=== PATIENT | female | born 1930 | race Caucasian/White ===

== ENCOUNTER 2016-11-10 12:54 | Inpatient (IN) | payer OTHER, BC ==
--- NOTE | ~2016-11-10 | HP ---
History And Physical [id number] [place]. [address] NAME: NAVARRO LI : 32 STATUS : ADM IN PAT#: [id number] AGE: 85 ADM/REG DATE : 11/10/16 MR#: [id number] REPORT SERV DATE: 11/10/16 DICTATED BY: HELENA RENEE DATE: 11/10/16 REPORT STATUS : Draft TRANSCRIBED BY: MODL DATE: 11/10/16 DATE OF ADMISSION: 11/10/2016 HISTORY OF PRESENT ILLNESS: Ms. Li is an 85-year-old female, who was diagnosed with IIIA ovarian cancer in 2011. At that time, she received Taxol and carboplatin. The patient presented to the office in September of this year with complaints of decreased appetite and vaginal bleeding. She was found at that time to have recurrence at her vaginal apex, about 4 cm mass. This area was biopsied and shown to be a recurrence of her ovarian cancer. A CT scan was performed at that time showing a large pelvic mass as well as positive lymph nodes to the iliac bifurcation, aortic bifurcation, and intra-aortocaval retroperitoneum. Since then, the patient has received 1 cycle of Taxol, her last dose being on 10/29. The patient presented to the office today with complaints of severe shortness of breath, fatigue, and decreased appetite with a 10-pound weight loss. Denies any fever or chills. States she does have a nonproductive cough. She is having daily bowel movements and denies any nausea or vomiting. PAST MEDICAL HISTORY: Arthritis, hypertension, and above-mentioned ovarian cancer. PAST SURGICAL HISTORY: MATT BSO in 2000 and she had appendectomy as a teenager. SOCIAL HISTORY: She is . Denies any alcohol, tobacco, or illicit drug use. REVIEW OF SYSTEMS: As indicated in the HPI. PHYSICAL EXAMINATION: GENERAL: She is alert and oriented x3. Appears weak and pale, in no acute distress. LUNGS: Clear to auscultation bilaterally. Respirations are slightly labored. HEART: Regular rate and rhythm. ABDOMEN: Soft and nontender. EXTREMITIES: Pulses +2 and no swelling noted. ASSESSMENT/PLAN: This is an 85-year-old female with recurrent ovarian cancer, is receiving single agent Taxol, who now is found to have shortness of breath. She is also found to have anemia and decreased appetite that has resulted in a 10-pound weight loss. We will admit the patient and check a CTA of chest to rule out PE. The patient's O2 saturation in the office was found to be 90%. We will also place on 2 L of O2 via nasal cannula in contrary to keep O2 saturation above 93%. We will transfuse the patient with 2 units of packed red blood cells. Further recommendations to follow after the above tests are completed. RADHA/MAT History And Physical [address] [address] NAME: NAVARRO LI : 32 STATUS : ADM IN PAT#: [id number] AGE: 85 ADM/REG DATE : 11/10/16 MR#: [id number] REPORT SERV DATE: 11/10/16 DICTATED BY: HELENA RENEE DATE: 11/10/16 REPORT STATUS : Draft TRANSCRIBED BY: MAT DATE: 11/10/16 Helena Renee NP / [id number] CC: Milo Abdi M.D.
[~2016-11-10 12:54] MED LIST: CARDCD240 PO; CARDU2 PO; COREG25 PO; COZAAR100 MG PO; PAX20 PO; ULTRAM50 PO; ZOCOR20 PO
[2016-11-10 15:09] LABS: HEMOGLOBIN 9.1 g/dL (12.0-16.0); MEAN CORPUSCULAR HEMOGLOB 29.5 pg (26.0-34.0); MEAN PLATELET VOLUME 10.3 fL (9.2-13.0); PLATELET COUNT 222 10/3/uL (150-400); RBC DISTRIBUTION WIDTH 14.6 % (12.0-16.0); RED CELL COUNT 3.08 10/6/uL (4.0-5.6)
[2016-11-10 15:10] LABS: HEMATOCRIT 26.1 % (36.0-48.0); MEAN CORPUS HGB CONC 34.9 g/dL (32.0-36.0); MEAN CORPUSCULAR VOLUME 84.7 fL (80-100); WHITE BLOOD CELLS 32.7 10/3/uL (4.5-10.5)
[2016-11-10 15:12] LABS: MANUAL DIFF YES %
[2016-11-10] MEDS ORDERED: EXELON9.5T TOP (15:13)
[2016-11-10] MEDS ORDERED: COZ50 PO (15:14)
[2016-11-10] MEDS ORDERED: CARD60 PO (15:14)
[2016-11-10] MEDS ORDERED: ULTRAM50 PO (15:14)
[2016-11-10] MEDS ORDERED: TOPXL100 PO (15:15)
[2016-11-10] MEDS ORDERED: CARDU2 PO (15:15)
[2016-11-10] MEDS ORDERED: PAX20 PO (15:16)
[2016-11-10] MEDS ORDERED: VITAMIN D2000 UNIT PO (15:16)
[2016-11-10] MEDS ORDERED: FOLIC PO (15:16)
[2016-11-10 15:17] LABS: CALCIUM, SERUM 8.7 MG/DL (8.5-10.4); CHLORIDE, SERUM 104 MMOL/L (96-112); CO2 (CARBON DIOXIDE) 17 MMOL/L (24-34); CREATININE 1.35 MG/DL (0.55-1.02); GFR AFRICAN AMERICAN 42 ML/MIN (>=60); GFR NON AFRICAN AMERICAN 36 ML/MIN (>=60); GLUCOSE, SERUM 93 MG/DL (60-99); POTASSIUM, SERUM 3.4 MMOL/L (3.5-5.3); SODIUM, SERUM 137 MMOL/L (135-148)
[2016-11-10] MEDS ORDERED: B121000P IM (15:17)
[2016-11-10] MEDS ORDERED: ERYTHROMYCIN O3.5 G1 OPH (15:17)
[2016-11-10 15:18] LABS: BUN (BLOOD UREA NITROGEN) 24 MG/DL (6-23)
[2016-11-10] MEDS ORDERED: NEULASTA SC (15:19)
[2016-11-10] MEDS ORDERED: CHEMOTHERAPY IV (15:19)
[2016-11-10 15:50] LABS: BAND NEUTROPHILS 61 %; IMMATURE GRANS ABSOLUTE (CALC) 1.31 10/3/uL (0.0-0.11); LYMPHOCYTES 3 %; LYMPHOCYTES ABSOLUTE (CALC) 0.98 10/3/uL (0.67-4.30); METAMYELOCYTES 3 %; MONOCYTES 2 %; MONOCYTES ABSOLUTE (CALC) 0.65 10/3/uL (0.21-1.20); MYELOCYTES 1 %; NEUTROPHILS ABSOLUTE (CALC) 29.76 10/3/uL (2.02-8.40); SEGMENTED NEUTROPHIL (0) 30 %; TOTAL NUCLEATED CELLS 100
[2016-11-10 15:51] LABS: PLATELET ESTIMATE ADQ (ADEQUATE); RBC MORPHOLOGY NORM (NORMAL); TOXIC GRANULATION 2+
[2016-11-11 04:23] LABS: MEAN CORPUS HGB CONC 34.7 g/dL (32.0-36.0); MEAN CORPUSCULAR HEMOGLOB 29.7 pg (26.0-34.0); MEAN CORPUSCULAR VOLUME 85.7 fL (80-100); MEAN PLATELET VOLUME 9.8 fL (9.2-13.0); NUCLEATED RED BLOOD CELLS 0.1 /100WBC (0-0); PLATELET COUNT 198 10/3/uL (150-400); RBC DISTRIBUTION WIDTH 14.5 % (12.0-16.0)
[2016-11-11 04:25] LABS: HEMATOCRIT 32.3 % (36.0-48.0); HEMOGLOBIN 11.2 g/dL (12.0-16.0); MANUAL DIFF YES %; RED CELL COUNT 3.77 10/6/uL (4.0-5.6)
[2016-11-11 04:35] LABS: BUN (BLOOD UREA NITROGEN) 21 MG/DL (6-23); CALCIUM, SERUM 8.2 MG/DL (8.5-10.4); CHLORIDE, SERUM 110 MMOL/L (96-112); CO2 (CARBON DIOXIDE) 19 MMOL/L (24-34); CREATININE 1.37 MG/DL (0.55-1.02); GFR AFRICAN AMERICAN 41 ML/MIN (>=60); GFR NON AFRICAN AMERICAN 36 ML/MIN (>=60); GLUCOSE, SERUM 93 MG/DL (60-99); POTASSIUM, SERUM 3.7 MMOL/L (3.5-5.3); SGOT(AST) 10 U/L (5-40); SGPT(ALT) 7 U/L (5-65); SODIUM, SERUM 139 MMOL/L (135-148); TOTAL BILIRUBIN 0.6 MG/DL (0-1.2); TOTAL PROTEIN 5.1 G/DL (6.0-8.5)
[2016-11-11 04:36] LABS: A/G RATIO 0.8 (0.7-1.9); ALBUMIN 2.2 G/DL (3.5-5.0); ALKALINE PHOSPHATASE 127 U/L (45-117); GLOBULIN 2.9 G/DL (2.5-4.1)
[2016-11-11 04:54] LABS: BAND NEUTROPHILS 11 %; LYMPHOCYTES 4 %; LYMPHOCYTES ABSOLUTE (CALC) 1.36 10/3/uL (0.67-4.30); MONOCYTES 8 %; MONOCYTES ABSOLUTE (CALC) 2.72 10/3/uL (0.21-1.20); NEUTROPHILS ABSOLUTE (CALC) 29.92 10/3/uL (2.02-8.40); PLATELET ESTIMATE ADQ (ADEQUATE); RBC MORPHOLOGY NORM (NORMAL); SEGMENTED NEUTROPHIL (0) 77 %; TOTAL NUCLEATED CELLS 100
== END 2016-11-11 10:26 | disposition home or self-care (01) | DRG 847 ==
LOC: 4EA 12:54
PROVIDERS: Obstetrics & Gynecology Gynecologic Oncology
PROC: 30233N1 Transfusion of Nonautologous Red Blood Cells into Peripheral Vein, Percutaneous Approach (ICD-10-PCS; principal; 2016-11-10)
DX: Z51.11 Encounter for antineoplastic chemotherapy (principal); C56.9 Malignant neoplasm of unspecified ovary
CPT/HCPCS: 36415; 71275; 80048; 80053; 85025; 86850; 86900; 86901; 86920; A9270-GY; P9016; Q9967

== ENCOUNTER 2016-12-17 12:12 | Observation (INO) | payer MEDICARE, BC ==
--- NOTE | ~2016-12-17 | HP ---
History And Physical [address] [place]. [address] NAME: NAVARRO LI : 34 STATUS : ADM IN PAT#: [id number] AGE: 86 ADM/REG DATE : 12/17/16 MR#: [id number] REPORT SERV DATE: 12/17/16 DICTATED BY: HELENA RENEE DATE: 12/17/16 REPORT STATUS : Draft TRANSCRIBED BY: MODL DATE: 12/17/16 DATE OF ADMISSION: 12/17/2016 HISTORY OF PRESENT ILLNESS: Ms. Li is an 86-year-old, who was diagnosed with stage IIIA ovarian cancer in 2011. After her diagnosis, she received Taxol and carboplatin. The patient was diagnosed with a recurrence to her vaginal cuff and a large pelvic mass with positive lymph nodes on CT scan in September of this year. Since that time, she has been receiving single agent Taxol. Her last dose of Taxol was on 12/10/2016 and that was cycle 2C. The patient presented to the office today with complaints of fatigue and shortness of breath on ambulation. Her heart rate on arrival to the office was 134. Her blood pressure is 86/60 and her O2 saturation is 97%. The patient states that she has a good appetite. Denies any fever or chills. Denies any nausea or vomiting, and is having daily bowel movements. PAST MEDICAL HISTORY: Arthritis, hypertension, and above-mentioned ovarian cancer. PAST SURGICAL HISTORY: MATT-BSO in 2000 and appendectomy as a teenager. SOCIAL HISTORY: She denies any tobacco, alcohol, or illicit drug use. REVIEW OF SYSTEMS: As indicated in the HPI. PHYSICAL EXAMINATION: GENERAL: She is alert and oriented x3. LUNGS: Clear to auscultation bilaterally. HEART: Tachycardia. ABDOMEN: Soft, nontender. EXTREMITIES: Pulses +2. No swelling noted. ASSESSMENT AND PLAN: This is an 86-year-old female with recurrent ovarian cancer, receiving single agent Taxol, who now has tachycardia and shortness of breath and decreased blood pressure. We will admit the patient. We will get a V/Q scan to rule out pulmonary embolism. The patient is unable to have a CTA of her chest related to acute renal insufficiency. She has a creatinine of 2.4. I will also give patient IV hydration. Further recommendations to come after the above test is completed. VAB/MODL Helena Renee NP / [id number] History And Physical [address] [address] NAME: NAVARRO LI : 34 STATUS : ADM IN PAT#: [id number] AGE: 86 ADM/REG DATE : 12/17/16 MR#: [id number] REPORT SERV DATE: 12/17/16 DICTATED BY: HELENA RENEE DATE: 12/17/16 REPORT STATUS : Draft TRANSCRIBED BY: MAT DATE: 12/17/16 CC: Milo Abdi M.D.
[~2016-12-17 12:12] MED LIST changes: +B121000P IM; +CARD60 PO; +CHEMOTHERAPY IV; +COZ50 PO; +ERYTHROMYCIN O3.5 G1 OPH; +EXELON9.5T TOP; +FOLIC PO; +NEULASTA SC; +TOPXL100 PO; +VITAMIN D2000 UNIT PO
[2016-12-17] MEDS ORDERED: VITAMIN D2000 UNIT PO (12:42)
[2016-12-17] MEDS ORDERED: B121000P IM (12:43)
[2016-12-17] MEDS ORDERED: CARDU2 PO (12:43)
[2016-12-17] MEDS ORDERED: CARD60 PO (12:43)
[2016-12-17] MEDS ORDERED: FOLIC PO (12:44)
[2016-12-17] MEDS ORDERED: TOPXL100 PO (12:45)
[2016-12-17] MEDS ORDERED: CIP5 PO (12:45)
[2016-12-17] MEDS ORDERED: EXELON9.5T TOP (12:45)
[2016-12-17] MEDS ORDERED: PAX20 PO (12:45)
[2016-12-17] MEDS ORDERED: ULTRAM50 PO (12:46)
[2016-12-17] MEDS ORDERED: CHEMOTHERAPY IV (12:47)
[2016-12-18 05:33] LABS: A/G RATIO 0.7 (0.7-1.9); ALKALINE PHOSPHATASE 114 U/L (45-117); BUN (BLOOD UREA NITROGEN) 31 MG/DL (6-23); CALCIUM, SERUM 8.1 MG/DL (8.5-10.4); CHLORIDE, SERUM 112 MMOL/L (96-112); CO2 (CARBON DIOXIDE) 18 MMOL/L (24-34); CREATININE 2.49 MG/DL (0.55-1.02); GFR AFRICAN AMERICAN 20 ML/MIN (>=60); GFR NON AFRICAN AMERICAN 17 ML/MIN (>=60); GLOBULIN 2.8 G/DL (2.5-4.1); GLUCOSE, SERUM 85 MG/DL (60-99); POTASSIUM, SERUM 4.1 MMOL/L (3.5-5.3); SGOT(AST) 5 U/L (5-40); SGPT(ALT) 7 U/L (5-65); SODIUM, SERUM 140 MMOL/L (135-148); TOTAL BILIRUBIN 0.2 MG/DL (0-1.2); TOTAL PROTEIN 4.8 G/DL (6.0-8.5)
[2016-12-18 05:39] LABS: HEMOGLOBIN 9.2 g/dL (12.0-16.0); MEAN CORPUS HGB CONC 33.2 g/dL (32.0-36.0); MEAN CORPUSCULAR HEMOGLOB 28.5 pg (26.0-34.0); MEAN CORPUSCULAR VOLUME 85.8 fL (80-100); PLATELET COUNT 231 10/3/uL (150-400); RBC DISTRIBUTION WIDTH 15.8 % (12.0-16.0); RED CELL COUNT 3.23 10/6/uL (4.0-5.6)
[2016-12-18 05:54] LABS: HEMATOCRIT 27.7 % (36.0-48.0); MANUAL DIFF YES %; WHITE BLOOD CELLS 28.8 10/3/uL (4.5-10.5)
[2016-12-18 06:42] LABS: BAND NEUTROPHILS 51 %; IMMATURE GRANS ABSOLUTE (CALC) 0.58 10/3/uL (0.0-0.11); LYMPHOCYTES 10 %; LYMPHOCYTES ABSOLUTE (CALC) 2.88 10/3/uL (0.67-4.30); METAMYELOCYTES 1 %; MONOCYTES 3 %; MONOCYTES ABSOLUTE (CALC) 0.86 10/3/uL (0.21-1.20); MYELOCYTES 1 %; NEUTROPHILS ABSOLUTE (CALC) 24.48 10/3/uL (2.02-8.40); PLATELET ESTIMATE ADQ (ADEQUATE); RBC MORPHOLOGY NORM (NORMAL); SEGMENTED NEUTROPHIL (0) 34 %; TOTAL NUCLEATED CELLS 100
== END 2016-12-18 11:50 | disposition home or self-care (01) ==
LOC: 4EA 12:12
PROVIDERS: Obstetrics & Gynecology Gynecologic Oncology
DX: R06.02 Shortness of breath (principal); R00.0 Tachycardia, unspecified; C56.9 Malignant neoplasm of unspecified ovary; M19.90 Unspecified osteoarthritis, unspecified site; I10 Essential (primary) hypertension; Z79.899 Other long term (current) drug therapy; Z90.49 Acquired absence of other specified parts of digestive tract; Z90.710 Acquired absence of both cervix and uterus; Z79.891 Long term (current) use of opiate analgesic; Z88.5 Allergy status to narcotic agent; Z88.8 Allergy status to other drugs, medicaments and biological substances
CPT/HCPCS: 71020; 78582; 80053; 85025; 93005; 96372; A9270-GY; A9540; A9567; G0378